=== PATIENT | female | born 1950 | race Caucasian/White ===

== ENCOUNTER → 2017-08-10 | Outpatient (CLI) | payer MEDICARE ==
--- NOTE | 2017-08-12 20:12 | BD ---
EXAMINATION TYPE: Axial Bone Density DATE OF EXAM: 08/10/2017 COMPARISON: [phone] CLINICAL HISTORY: 67 YR OLD FEMALE.....ICD-10 CODE: Z78.0 POST MENOPAUSAL W/O HRT Height: 64 Weight: 141 FRAX RISK QUESTIONS: Family History (Parent hip fracture): NO FRACTURES Secondary Osteoporosis: YES 3. Menopause before 45: YES, AT 40 YRS OLD RISK FACTORS HISTORY OF: History of Wrist Fracture: YES, LT WRIST When: AT 57 YRS OLD Family History of Osteoporosis: YES, HER MOTHER, WITH BROKEN VERTEBRAE Active: YES Diet low in dairy products/other sources of calcium: NO Postmenopausal woman: TOTAL HYST AT AGE 40 YRS OLD MEDICATIONS: Additional Medications: GENERIC ZOLOFT, VIT D, BIOTIN, STATIN FOR CHOLESTEROL, GLANTININE Additional History: DEMENTIA, ANXIETY EXAM MEASUREMENTS: Bone mineral densitometry was performed using the Meebler System. Bone mineral density as measured about the Lumbar spine is: ----- L1-L4(G/cm2): 0.968 T Score Values are as follows: ----- L1: -2.1 ----- L2: -2.1 ----- L3: -2.1 ----- L4: -0.8 ----- L1-L4: -1.8 Bone mineral density has: Decreased -6.2% since study of: 10.13.2005 Bone mineral density about the R hip (g/cm2): 0.712 Bone mineral density about the L hip (g/cm2): 0.722 T Score values are as follows: -----R Neck: -2.3 -----L Neck: -2.6 -----R Total: -2.3 -----L Total: -2.3 Bone mineral density has: Decreased -6.9% since study of: 10.13.2005 FRAX%S: THERE IS A 22.6% CHANCE OF A MAJOR OSTEOPOROTIC FX AND A 5.5% FOR HIP FX.....PROBABILITY O F FX IN 10 YRS TIME. IMPRESSION: Osteoporosis (T Score less than -2.5). There is increased fracture risk and therapy is usually indicated based on age. Re-Screen 1-2 years. NOTE: T-SCORE=SD OF THE YOUNG ADULT MEAN.
--- NOTE | 2017-08-14 10:20 | MM ---
Reason for exam: screening (asymptomatic). Last mammogram was performed 4 years and 11 months ago. Physical Findings: A clinical breast exam by your physician is recommended on an annual basis and results should be correlated with mammographic findings. MG 3D Screening Mammo W/Cad Bilateral CC and MLO view(s) were taken. Prior study comparison: September 17, 2012, bilateral digital screening mammo w/CAD. October 13, 2005, bilateral screening mammogram w/CAD. There are scattered fibroglandular densities. No significant changes when compared with prior studies. ASSESSMENT: Negative, BI-RAD 1 RECOMMENDATION: Routine screening mammogram of both breasts in 1 year.
== END | disposition home or self-care (01) ==
LOC: RADMAMWWP 14:11
PROVIDERS: ATTEND Internal Medicine
DX: Z12.31 Encounter for screening mammogram for malignant neoplasm of breast (principal); M81.0 Age-related osteoporosis without current pathological fracture; Z78.0 Asymptomatic menopausal state
CPT/HCPCS: 77063; 77067; 77080

== ENCOUNTER → 2019-02-17 | Outpatient (CLI) | payer MEDICARE ==
--- NOTE | 2019-02-17 11:05 | MR ---
EXAMINATION TYPE: MR knee RT wo con DATE OF EXAM: 02/17/2019 COMPARISON: Plain film 02/05/2019 HISTORY: Pain in right knee TECHNIQUE: Multiplanar, multisequence imaging of the right knee is performed without IV contrast. FINDINGS: MEDIAL MENISCUS: Within the posterior horn of the medial meniscus on coronal image #20 there is some linear increased signal which extends the articular surface as well as laterally, multiseptated focus is in close apposition to the posterior medial aspect of the posterior horn of the medial meniscus w hich measures approximately 1.8 x 2.2 x 2.4 cm and may represent a para meniscal cyst. LATERAL MENISCUS: Anterior and posterior horns are intact without tear. CRUCIATE LIGAMENTS: The anterior and posterior cruciate ligaments are intact and unremarkable. COLLATERAL LIGAMENTS: The medial collateral ligament and lateral collateral ligament complex are inta ct and unremarkable. EXTENSOR MECHANISM: Visualized quadriceps and patellar tendons are intact. EFFUSION: Minimal suprapatellar joint effusion POPLITEAL CYST: No popliteal/pimentel cyst. TRICOMPARTMENT SPACES: There is joint space loss in the medial compartment CARTILAGE: Suspect some grade 2 to grade III chondromalacia in the medial compartment. BONE MARROW SIGNAL: No focal abnormal marrow signal is appreciated. OTHER: No additional significant abnormality is appreciated. IMPRESSION: Findings may be indicative of a para meniscal cyst indicate an underlying meniscal tear versus possib le ganglion cyst at the posterior horn of the medial meniscus as described. Mild osteoarthritic ojeda es are suspected.
== END | disposition home or self-care (01) ==
LOC: RADMRIMAIN 08:31
PROVIDERS: ATTEND Orthopaedic Surgery
DX: M25.561 Pain in right knee (principal)

== ENCOUNTER → 2019-04-03 | Outpatient (CLI) | payer MEDICARE ==
[2019-04-03 18:54] LABS: T4, Free (Free Thyroxine) 0.9 ng/dL (0.80-1.80)
== END | disposition home or self-care (01) ==
LOC: LABWHC1 13:36
PROVIDERS: ATTEND Internal Medicine
DX: E03.9 Hypothyroidism, unspecified (principal)
CPT/HCPCS: 36415; 84439; 84443

== ENCOUNTER 2019-04-10 13:22 | Day surgery (SDC) | payer MEDICARE ==
[2019-04-07 15:00] VITALS: BMI 23.3
--- NOTE | 2019-04-09 22:56 | HP ---
HISTORY AND PHYSICAL DATE OF SURGERY: 04/10/2019 Cindi Bailey is a 69-year-old patient seen with progressive right knee pain. We discussed options for treatment. She elected to proceed with arthroscopy. Consent was obtained. PAST MEDICAL HISTORY: Hypertension, hyperlipidemia. PAST SURGICAL HISTORY: Noncontributory. MEDICATIONS: Atorvastatin, sertraline. ALLERGIES: NONE. SOCIAL HISTORY: She denies tobacco use. PHYSICAL EVALUATION OF THE RIGHT KNEE: Range of motion is 0 to 130. Tenderness, medial joint line. Positive medial Yeni's. Ligaments stable. Hip rotation without pain. Distal neurovascular exam intact. RADIOGRAPHS: Right knee radiographs revealed mild osteoarthritis. Right knee MRI revealed medial meniscal tear, a parameniscal cyst as well as osteoarthritic changes. IMPRESSION: 1. Internal derangement, right knee, with medial meniscal tear. 2. Right knee osteoarthritis. 3. Hyperlipidemia. PLAN: Right knee arthroscopy with partial meniscectomy, partial synovectomy and debridement. MMODL / IJN: [id number] /
[~2019-04-10 13:22] MED LIST: DEXAMETHASONE SOD PHOSPHATE 10 MG/ML 1 ML VIAL IV ONE; LACTATED RINGERS 1,000 ML IV SCH; MIDAZOLAM 2 MG/2 ML VIAL IV PRN; ONDANSETRON 4 MG/2 ML VIAL IVP ONE
[2019-04-10] MEDS ORDERED: LIDOCAINE 1% 20 ML VIAL (10MG/ML) FOR IV START INTRADERMA ONE (13:49)
[2019-04-10 13:57] VITALS: RESP 16
[2019-04-10] MEDS ORDERED: GLYCOPYRROLATE 0.2 MG/ML 2 ML VIAL ONE (14:42)
[2019-04-10] MEDS ORDERED: PROPOFOL 10 MG/ML 20 ML VIAL IV ONE (14:42)
[2019-04-10] MEDS ORDERED: MIDAZOLAM 2 MG/2 ML VIAL ONE (14:42)
[2019-04-10] MEDS ORDERED: LIDOCAINE 1% INJ 10MG/ML (20 ML MDV) ONE (14:42)
[2019-04-10] MEDS ORDERED: fentaNYL (PF) 50 MCG/ML 2 ML AMP ONE (14:42)
[2019-04-10] MEDS ORDERED: BUPIVACAIN-EPI 0.25%-1:200,000 30 ML VIAL SQ ONE ×2 (15:06→15:22)
--- NOTE | 2019-04-10 15:41 | P.OP ---
Date of Procedure: 04/10/19 Preoperative Diagnosis: Internal derangement right knee Postoperative Diagnosis: 1. Tear lateral meniscus right 2. Grade 2 chondromalacia medial femoral condyle right knee 3. Reactive synovitis medial, lateral and suprapatellar compartments right knee Procedure(s) Performed: 1. Arthroscopic partial lateral meniscectomy right knee 2. Arthroscopic chondroplasty medial femoral condyle right knee 3. Arthroscopic partial synovectomy medial, lateral and suprapatellar compartments right knee Anesthesia: GHADAA, local Surgeon: Zackary French Estimated Blood Loss (ml): 10 Pathology: none sent Condition: stable Disposition: PACU Indications for Procedure: 69-year-old patient seen with progressive right knee pain. After treatment options were discussed, she elected to proceed with arthroscopy. Operative Findings: see description of procedure Description of Procedure: Patient was taken to the operative suite. Patient underwent a general anesthetic by the department of anesthesia. Patient was given preoperative an tibiotics. The lower extremity was placed in a well-padded arthroscopic leg cid. The right leg was prepped and draped in the normal sterile orthopedic fashion. A lateral parapatellar and suprapatellar incision was made. Trochars were inserted. Arthroscopy was initiated. Suprapatellar pouch revealed diffuse thick reactive synovitis. The patellofemoral joint appeared to articulate congruently. There grade 1/2 chondromalacia of the patella with no osteochondral tears present.. The scope was guided into the medial gutter. No loose bodies or plica were identified. The scope was then guided into the medial compartment. A medial parapatellar incision was made. Trocar inserted followed by probe. The medial meniscus was probed and found to be stable. There was an area of grade 2 chondromalacia medial femoral condyle. There was thick reactive synovitis anteriorly. I performed a chondroplasty of the medial femoral condyle. I performed a partial synovectomy decompressing the reactive synovitis. The residual osteochondral surface was stable. There was good decompression of the synovitis. Scope and probe were then guided into the intercondylar notch. Cruciates were identified, probed and found to be stable. The scope and probe were then guided into lateral compartment. There was a complex tear involving anterior horn lateral meniscus. There was no significant chondromalacia present. There was thick reactive synovitis anteriorly. The posterior midbody horns of the meniscus was stable. I performed a partial lateral meniscectomy. I performed a partial synovectomy decompressing the reactive synovitis. The residual meniscus was stable. There was good decompression of the synovitis. The scope was in guided back into the suprapatellar compartment. I introduced a motorized shaver into the suprapatellar compartment. I debrided some piecemeal fragments of meniscus I encountered. I performed a partial synovectomy decompressing the reactive synovitis. Shaver was removed. I did introduced a Arthrex our FY and to perform some hemostasis. We had good hemostasis. I now took one more look on the entire knee, no residual debris. Instruments were now removed from the joint. The joint was infiltrated with .25% Marcaine. Steri-Strips were applied to the portal sites. Sterile dressings were applied. The patient was placed into a MEERA hose. No tourniquet was utilized. The patient was awakened, transferred to a bed and taken to recovery stable satisfactory condition.
[2019-04-10 15:44] VITALS: TEMP 97.7
[2019-04-10] MEDS: HYDROmorphone 0.5 MG/0.5 ML SYRINGE IVP PRN ×2 (15:50→16:00)
[2019-04-10 17:37] VITALS: BP 151/77; PULSE 86
== END 2019-04-10 17:57 | disposition home or self-care (01) ==
LOC: OR 13:22
PROVIDERS: ATTEND Orthopaedic Surgery
DX: S83.281A Other tear of lateral meniscus, current injury, right knee, initial encounter (principal); X58.XXXA Exposure to other specified factors, initial encounter; M94.261 Chondromalacia, right knee; M65.861 Other synovitis and tenosynovitis, right lower leg; M17.11 Unilateral primary osteoarthritis, right knee; I10 Essential (primary) hypertension; Z86.73 Personal history of transient ischemic attack (TIA), and cerebral infarction without residual deficits; Z90.710 Acquired absence of both cervix and uterus; E78.5 Hyperlipidemia, unspecified; Z79.899 Other long term (current) drug therapy
CPT/HCPCS: 29881; 29876; J2250; J1100; J2405; J0690; J2001; J3010; J2704; J1170

== ENCOUNTER → 2019-09-11 | Outpatient (CLI) | payer MEDICARE ==
--- NOTE | 2019-09-11 15:09 | ECHOS ---
STRESS ECHOCARDIOGRAM LUMASON: INDICATIONS: Difficulty in breathing MEDICATIONS: Aspirin, Sertraline, Galantamine BASELINE HEART RATE: 56 BASELINE BLOOD PRESSURE: 122/46 MAXIMUM HEART RATE: 139 MAXIMUM BLOOD PRESSURE: 197/63 85% MPHR: 130 100% MPHR: 153 METS: 7.1 MAXIMUM STAGE REACHED: II TOTAL EXERCISE TIME: 6:00 INDICATION: Difficulty in breathing. Baseline EKG shows sinus rhythm, normal axis, normal intervals. Patient exercised on Layton protocol for a total of 6 minutes achieving 7 METS, 85% of predicted maximal heart rate without chest pain or diagnostic ST-segment depression. Baseline echo shows normal left ventricular size, wall motion, systolic function. Postexercise, there is normal hyperdynamic response of all segments of myocardium noted. CONCLUSION: 1. Average exercise tolerance. 2. Negative stress test by EKG criteria. 3. Negative stress echo. NII / CHANCEN: [id number] /
== END | disposition home or self-care (01) ==
LOC: RADNMMAIN 09:53
PROVIDERS: ATTEND Internal Medicine
DX: R06.09 Other forms of dyspnea (principal); R07.89 Other chest pain; E78.5 Hyperlipidemia, unspecified
CPT/HCPCS: 93351

== ENCOUNTER → 2019-10-28 | Outpatient (CLI) | payer MEDICARE ==
--- NOTE | 2019-10-28 13:39 | BD ---
EXAMINATION TYPE: Axial Bone Density DATE OF EXAM: 10/28/2019 COMPARISON: 08/10/2017 CLINICAL HISTORY: Height: 64.2 IN Weight: 126 LBS FRAX RISK QUESTIONS: Family History (Parent hip fracture): YES MOTHER History of Fracture in Adulthood: YES LEFT WRIST AGE 53 Secondary Osteoporosis: 3. Menopause before 45: PARTIAL HYST AGE 40 RISK FACTORS HISTORY OF: History of Wrist Fracture: YES LEFT WRIST When: AGE 55 Surgery to Wrist (left): YES AGE 55 Family History of Osteoporosis: MOTHER,AUNTS 2), GRANDMOTHER(M) Active: YES Diet low in dairy products/other sources of calcium: YES Postmenopausal woman: PARTIAL HYST AGE 40 Frequent falls: BALANCE ISSUES MEDICATIONS: Osteoporosis Medications: NOT NOW Which medication: Fosamax How Lon YEARS Additional Medications: GALANTAMINE,LIPITOR, ZOLOFT, LOW DOSE ASPIRIN EXAM MEASUREMENTS: Bone mineral densitometry was performed using the MAINtag System. Bone mineral density as measured about the Lumbar spine is: ----- L1-L4(G/cm2): 0.894 T Score Values are as follows: ----- L2: -2.7 ----- L3: -2.6 ----- L4: -2.0 ----- L1-L4: -2.4 Bone mineral density has: Decreased -8.5% since study of: 08/10/2017 Bone mineral density about the R hip (g/cm2): 0.670 Bone mineral density about the L hip (g/cm2): 0.643 T Score values are as follows: -----R Neck: -2.6 -----L Neck: -2.8 -----R Total: -2.7 -----L Total: -2.6 Bone mineral density has: Decreased -5.7% since study of: 08/10/2017 IMPRESSION: Osteoporosis NOTE: T-SCORE=SD OF THE YOUNG ADULT MEAN.
--- NOTE | 2019-11-03 12:08 | MM ---
Reason for exam: screening (asymptomatic). Last mammogram was performed 2 years and 3 months ago. Physical Findings: A clinical breast exam by your physician is recommended on an annual basis and results should be correlated with mammographic findings. MG 3D Screening Mammo W/Cad Bilateral CC and MLO view(s) were taken. Prior study comparison: August 10, 2017, bilateral MG 3d screening mammo w/cad. September 17, 2012, bilateral digital screening mammo w/CAD. There are scattered fibroglandular densities. There is no discrete abnormality. ASSESSMENT: Negative, BI-RAD 1 RECOMMENDATION: Routine screening mammogram of both breasts in 1 year.
== END | disposition home or self-care (01) ==
LOC: RADMAMWWP 08:38
PROVIDERS: ATTEND Internal Medicine
DX: Z12.31 Encounter for screening mammogram for malignant neoplasm of breast (principal); M81.0 Age-related osteoporosis without current pathological fracture
CPT/HCPCS: 77063; 77067; 77080

== ENCOUNTER → 2020-03-03 | Outpatient (CLI) | payer MEDICARE | END | disposition home or self-care (01) | LOC: CPPFTMAIN 10:18 | PROVIDERS: ATTEND Internal Medicine | DX: R94.2 Abnormal results of pulmonary function studies (principal); R05 Cough | CPT/HCPCS: 94060; 94726; 94729 ==

== ENCOUNTER → 2020-12-09 | Outpatient (CLI) | payer MEDICARE ==
--- NOTE | 2020-12-10 12:29 | MM ---
Reason for exam: screening (asymptomatic). Last mammogram was performed 1 year and 1 month ago. History: Took hormonal contraceptives for 5 years. Physical Findings: A clinical breast exam by your physician is recommended on an annual basis and results should be correlated with mammographic findings. MG 3D Screening Mammo W/Cad Bilateral CC and MLO view(s) were taken. Prior study comparison: October 28, 2019, bilateral MG 3d screening mammo w/cad. August 10, 2017, bilateral MG 3d screening mammo w/cad. There are scattered fibroglandular densities. Finding: There are intermediate concern, suspicious coarse heterogeneous, grouped/clustered calcifications in the 11-12 o'clock middle position of the right breast. New finding since October 28, 2019 and August 10, 2017. ASSESSMENT: Incomplete: need additional imaging evaluation, BI-RAD 0 RECOMMENDATION: Special view mammogram of the right breast. [facility] will attempt to contact patient to return for supplemental views.
== END | disposition home or self-care (01) ==
LOC: RADMAMWWP 13:26
PROVIDERS: ATTEND Internal Medicine
DX: Z12.31 Encounter for screening mammogram for malignant neoplasm of breast (principal)
CPT/HCPCS: 77063; 77067

== ENCOUNTER → 2020-12-24 | Outpatient (CLI) | payer MEDICARE ==
--- NOTE | 2020-12-27 12:28 | MM ---
Reason for exam: additional evaluation requested from abnormal screening. Last mammogram was performed less than 1 month ago. History: Took hormonal contraceptives for 5 years. Physical Findings: Nurse did not find any significant physical abnormalities on exam. MG 3D Work Up W/Cad RT CC with magnification, LM with magnification, and LM view(s) were taken of the right breast. Prior study comparison: December 09, 2020, bilateral MG 3d screening mammo w/cad. There are scattered fibroglandular densities. Finding: There are intermediate concern, suspicious grouped/clustered, fine calcifications in the 11 o'clock middle position of the right breast. These results were verbally communicated with the patient and result sheet given to the patient on 12/24/20. ASSESSMENT: Suspicious, BI-RAD 4 RECOMMENDATION: Stereotactic core biopsy of the right breast. Called Dr. Montiel's office with mammographic findings and has scheduled an appointment for the patient for 12/24/20 at 3:[address] Hernandez. Biopsy scheduled for 02/04/21 at 8:00. PRELIMINARY REPORT CALLED AND FAXED TO DR. HERNANDEZ ON 12/27/20.
== END | disposition home or self-care (01) ==
LOC: RADMAMWWP 13:29
PROVIDERS: ATTEND Internal Medicine
DX: N64.89 Other specified disorders of breast (principal); R92.1 Mammographic calcification found on diagnostic imaging of breast
CPT/HCPCS: 77065; G0279; 77061

== ENCOUNTER → 2020-12-24 | Outpatient (CLI) | payer MEDICARE ==
[2020-12-24 15:32] VITALS: BP 109/71; PULSE 60; RESP 12; TEMP 98.6
--- NOTE | 2020-12-24 15:57 | P.GSHP ---
History of Present Illness H&P Date: 12/24/20 Chief Complaint: Abnormal right breast mammogram Cindi is a 70-year-old white female who underwent a routine screening mammogram was noted to have an area of microcalcifications in the right breast. This was reviewed with Dr. Short and it was felt that stereotactic core biopsy should be performed. The location is in the upper outer quadrant of the right breast. She does not feel any lumps masses or nodules of concern in either breast. She is not complaining of any nipple discharge or skin changes. She has never had any surgery on her breast in the past. Caffeine: tea 4 cups/day nicotine: none chocolate: rare hormones: none BCP: about two years 45 years ago Family History: no history of cancer Hormonal History: menarche: 13 , breast fed: yes, age at first : 27 menopause: hysterectomy about 37 took one ovary, done for fibroid tumor no canc er Surgical History: Hysterectomy 1 ovary removed 2 C-sections Plate in left arm from trauma Medical history: alzheimers/dementia mini strokes on galantamine Social history: Nicotine: Negative Alcohol: Negative Drugs:none - Review of Systems Comment: ? 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 - Constitutional Constitutional: Denies chills, Denies fever - EENT Eyes: denies blurred vision, denies pain Ears: bilateral: tinnitus, deny: decreased hearing Ears, nose, mouth and throat: Denies headache, Denies sore throat - Breasts Breasts: bilateral: as per HPI - Cardiovascular Cardiovascular: Denies chest pain, Denies shortness of breath - Respiratory Respiratory: Denies cough, Denies 7 - Gastrointestinal Gastrointestinal: Denies abdominal pain, Denies diarrhea, Denies nausea, Denies vomiting - Genitourinary (Female) Genitourinary: Denies dysuria, Denies hematuria - Menstruation Menstruation: Reports post hysterectomy - Musculoskeletal Musculoskeletal: Denies myalgias - Integumentary Integumentary: Denies pruritus, Denies rash - Neurological Comment: ? mini strokes, dementia Neurological: Denies numbness, Denies weakness - Psychiatric Psychiatric: Reports depression - Endocrine Endocrine: Reports weight change - Hematologic/Lymphatic Comment: baby aspirin - Allergic/Immunologic Allergic/Immunologic: Reports seasonal allergies Past Medical History History of Any Multi-Drug Resistant Organisms: None Reported Smoking Status: Never smoker Medications and Allergies Home Medications Medication Instructions Recorded Confirmed Type Aspirin [Adult Low Dose Aspirin EC] 81 mg PO DAILY 04/07/19 12/24/20 History Sertraline HCl [Zoloft] 100 mg PO DAILY 04/07/19 12/24/20 History Atorvastatin [Lipitor] 40 mg PO DAILY 12/24/20 12/24/20 History Galantamine [Razadyne] 1 mg PO DAILY 12/24/20 12/24/20 History Allergies Allergy/AdvReac Type Severity Reaction Status Date / Time No Known Allergies Allergy Verified 04/10/19 13:43 Surgical - Exam Vital Signs Temp Pulse Resp BP Pulse Ox 98.6 F 60 12 109/71 98 12/24/20 15:27 12/24/20 15:27 12/24/20 15:27 12/24/20 15:27 12/24/20 15:27 BMI 18.6 - General no distress - Eyes normal ocular movement - ENT no hearing loss - Neck no masses, trachea midline - Respiratory normal respiratory effort, clear to auscultation - Cardiovascular Heart Sounds: normal: S1, S2 - Abdomen Abdomen: soft, non tender, no guarding, no rigid, no rebound - Integumentary normal turgor - Neurologic no disoriented, no combative - Musculoskeletal normal gait, normal posture - Psychiatric oriented to time, oriented to person, oriented to place, speech is normal, memory intact Breast Exam: BRA: 36C inspection: grade 2/3 ptosis bilateral Palpation: Right breast: Multi-positional exam fibrocystic changes no dominant masses or nodules of concern Right axilla: No adenopathy of concern Left breast: Multiple positional exam fibrocystic changes no dominant masses or nodules of concern Left axilla: No adenopathy of concern Results Bilateral mammogram reviewed personally with Dr. Short Assessment and Plan Assessment: Impression: alzheimers/dementia mini strokes on galantamine Right breast mammographic abnormality/microcalcifications upper outer quadrant Plan: X-rays reviewed with Dr. Short recommendations stereotactic core biopsy for from a CC from above approach Risks and benefits of stereotactic core biopsy discussed with the patient. Risks include but are not limited to bleeding, infection, reaction to the anesthetic. She understands that as long as we can see this on the supervisor shuttle preparation film we should be able to do the stereo biopsy. If not further recommendation made for open biopsy. At this time watchful waiting or open biopsy discussed but not recommended. The patient understands and wishes to proceed. CC: Dr. Montiel
== END ==
LOC: WWCWWP 15:02
PROVIDERS: ATTEND Surgery
DX: R92.0 Mammographic microcalcification found on diagnostic imaging of breast (principal); F02.80 Dementia in other diseases classified elsewhere, unspecified severity, without behavioral disturbance, psychotic disturbance, mood disturbance, and anxiety; G30.9 Alzheimer's disease, unspecified; I63.9 Cerebral infarction, unspecified; Z79.82 Long term (current) use of aspirin; Z90.721 Acquired absence of ovaries, unilateral; Z79.899 Other long term (current) drug therapy

== ENCOUNTER → 2021-02-04 | Day surgery (SDC) | payer MEDICARE ==
[2021-02-04 07:20] VITALS: RESP 16
--- NOTE | 2021-02-04 08:41 | P.PCN ---
Date of Procedure: 02/04/21 Preoperative Diagnosis: Microcalcifications of concern right breast Postoperative Diagnosis: Same Procedure(s) Performed: Stereotactic core biopsy right breast Anesthesia: local Surgeon: China Hernandez Pathology: other (breast tissue) Condition: stable Disposition: same day Indications for Procedure: Microcalcifications of concern right breast Operative Findings: X-ray of specimen reveals microcalcifications Description of Procedure: Cindi is a 71-year-old white female who on a routine mammogram was noted to have indeterminate suspicious group clustered fine calcifications in the 11:00 middle position of the right breast. She was recommended to undergo a stereotactic core biopsy. Risk and benefits of the procedure were discussed with the patient. Risks include but are not limited to bleeding, infection, reaction to the anesthetic. The possibility of being unable to see the calcifications of concern on his cell phone were discussed in which case the procedure would be unable to be performed. Alternatives such as watchful wa iting and biopsy were noted but not recommended. The patient was taken to the stereotactic core biopsy proven. She was positioned prone on the lower rad table. A CC from above approach was utilized. A scalp film was obtained. The calcifications of concern were identified. These were targeted. The breast was prepped using Betadine. 20 mL of 1% lidocaine was used to anesthetize the area of concern. A 9-gauge vacuum- assisted core rotating biopsy needle was driven to the correct coordinates. A prefire film was obtained. The needle was fired. Post-fire film was obtained and noted to be in the correct location. 13 specimens were obtained. Radiograph of the specimen revealed the calcifications of concern had been sampled. A secure marked top hat Clip was placed. This was noted to be in the correct location. The patient tolerated the procedure in stable condition. The specimen was sent to pathology. The patient will follow-up with Dr. Persaud next week.
[2021-02-04 08:54] VITALS: BP 144/66; PULSE 53; TEMP 98
--- NOTE | 2021-02-04 12:02 | MM ---
Cindi is a 71-year-old white female who on a routine mammogram was noted to have indeterminate suspicious group clustered fine calcifications in the 11:00 middle position of the right breast. She was recommended to undergo a stereotactic core biopsy. Risk and benefits of the procedure were discussed with the patient. Risks include but are not limited to bleeding, infection, reaction to the anesthetic. The possibility of being unable to see the calcifications of concern on his cell phone were discussed in which case the procedure would be unable to be performed. Alternatives such as watchful waiting and biopsy were noted but not recommended. The patient was taken to the stereotactic core biopsy proven. She was positioned prone on the lower rad table. A CC from above approach was utilized. A top waddy film was obtained. The calcifications of concern were identified. These were targeted. The breast was prepped using Betadine. 20 mL of 1% lidocaine was used to anesthetize the area of concern. A 9-gauge vacuum- assisted core rotating biopsy needle was driven to the correct coordinates. A prefire film was obtained. The needle was fired. Post-fire film was obtained and noted to be in the correct location. 13 specimens were obtained. Radiograph of the specimen revealed the calcifications of concern had been sampled. A secure marked top hat Clip was placed. This was noted to be in the correct location. The patient tolerated the procedure in stable condition. The specimen was sent to pathology. The patient will follow-up with Dr. Persaud next week. RAGINI
== END ==
LOC: RADMAMWWP 07:10
PROVIDERS: ATTEND Surgery
DX: R92.0 Mammographic microcalcification found on diagnostic imaging of breast (principal)
CPT/HCPCS: 19081; 88305; A4648; J2001

== ENCOUNTER → 2021-02-10 | Outpatient (CLI) | payer MEDICARE ==
[2021-02-10 09:35] VITALS: BP 158/71; PULSE 57; RESP 18; TEMP 98
--- NOTE | 2021-02-10 09:57 | P.PN ---
Subjective Progress Note Date: 02/10/21 Principal diagnosis: Fibrocystic breast changes Seven 71-year-old white female status post right breast stereotactic core biopsy on [id number]. Pathology revealed fibroadenomatoid hyperplasia with calcifications and the background of fibrocystic changes. This was felt to be concordant. The patient has no complaints related to the procedure. Objective - Vital Signs Vital signs: Vital Signs Temp 98.0 F 02/10/21 09:33 Pulse 57 L 02/10/21 09:33 Resp 18 02/10/21 09:33 BP 158/71 02/10/21 09:33 Pulse Ox 100 02/10/21 09:33 Intake & Output 02/09/21 02/10/21 02/10/21 18:59 06:59 18:59 Weight 49.895 kg - Constitutional General appearance: Present: cooperative - EENT Eyes: Present: EOMI ENT: Present: hearing grossly normal - Neck Neck: Present: normal ROM - Respiratory Respiratory: bilateral: CTA - Cardiovascular Rhythm: regular Heart sounds: normal: S1, S2 - Integumentary Integumentary: Present: normal turgor - Musculoskeletal Musculoskeletal: Present: gait normal - Psychiatric Psychiatric: Present: A&O x's 3, appropriate affect, intact judgment & insight - Additional findings Additional findings: Breast: Biopsy area clean and dry no evidence of infection Assessment and Plan Assessment: Impression: Patient status post her tactic core biopsy right breast/pathology benign concordant Plan: Repeat right breast mammogram in 6 months with physician exam at that time Cc: Dr. Montiel
== END ==
LOC: WWCWWP 09:23
PROVIDERS: ATTEND Surgery
DX: N60.11 Diffuse cystic mastopathy of right breast (principal)

== ENCOUNTER → 2021-08-08 | Outpatient (CLI) | payer MEDICARE ==
--- NOTE | 2021-08-09 10:54 | MM ---
Reason for Exam: Follow-up at short interval from prior study. Last screening mammogram was performed 8 month(s) ago. Patient History: Menarche at age 13. First Full-Term at age 27. Right ovary removed at age 37. Hysterectomy at age 37. Patient used Hormonal Contraceptives for 5 years. 02/04/2021, Benign Core Biopsy on the right side. Risk Values: Ashley 5 year model risk: 2.5%. NCI Lifetime model risk: 7.6%. Film Views: Right CC views were taken. Right MLO views were taken. Prior Study Comparison: 10/28/2019 Bilateral Screening Mammogram, [facility]. 12/09/2020 Bilateral Screening Mammogram, [facility]. 12/24/2020 Right Diagnostic Mammogram, [facility]. Tissue Density: Right: There are scattered fibroglandular densities. Findings: Analyzed By CAD. Previous mammotome biopsy in the right breast. No new discrete abnormality. Overall Assessment: Benign, BI-RAD 2 Management: Screening Mammogram of both breasts in 4 months. Back on schedule.
== END | disposition home or self-care (01) ==
LOC: RADMAMWWP 12:54
PROVIDERS: ATTEND Surgery
DX: R92.8 Other abnormal and inconclusive findings on diagnostic imaging of breast (principal); Z90.721 Acquired absence of ovaries, unilateral
CPT/HCPCS: 77065; G0279; 77061

== ENCOUNTER → 2021-12-07 | Outpatient (CLI) | payer MEDICARE ==
--- NOTE | 2021-12-08 10:10 | CA ---
Transthoracic Echo Report Name: Cindi Bailey Age: 71 Gender: F : 1950 Exam Date: 12/07/2021 11:13 Exam Location: [facility] Ht (in): 65 Wt (lb): 112 Ordering Physician: Mika Montiel MD Attending/Referring Phys: Drawbench Operator Helper Shannon Suazo RDCS Procedure CPT: Indications: R01.1 cardiac murmur Cardiac Hx: Technical Quality: Fair Contrast 1: Total Dose (mL): Contrast 2: Total Dose (mL): MEASUREMENTS (Male / Female) Normal Values 2D ECHO LV Diastolic Diameter PLAX 2.6 cm 4.2 - 5.9 / 3.9 - 5.3 cm LV Systolic Diameter PLAX 1.9 cm IVS Diastolic Thickness 0.9 cm 0.6 - 1.0 / 0.6 - 0.9 cm LVPW Diastolic Thickness 1.1 cm 0.6 - 1.0 / 0.6 - 0.9 cm LV Relative Wall Thickness 0.8 RV Internal Dim ED PLAX 2.2 cm LA Volume 27.3 cm??? 18 - 58 / 22 - 52 cm??? M-MODE Aortic Root Diameter MM 2.2 cm LA Systolic Diameter MM 3.2 cm LA Ao Ratio MM 1.4 AV Cusp Separation MM 1.5 cm DOPPLER AV Peak Velocity 105.4 cm/s AV Peak Gradient 4.4 mmHg AI Peak Velocity 520.0 cm/s AI Peak Gradient 108.2 mmHg AI Pressure Half Time 497.3 ms LVOT Peak Velocity 72.2 cm/s LVOT Peak Gradient 2.1 mmHg MV Area PHT 3.2 cm??? Mitral E Point Velocity 63.2 cm/s Mitral A Point Velocity 76.7 cm/s Mitral E to A Ratio 0.8 MV Deceleration Time 238.5 ms MV E' Velocity 6.2 cm/s Mitral E to MV E' Ratio 10.2 TR Peak Velocity 189.3 cm/s TR Peak Gradient 14.3 mmHg Right Ventricular Systolic Press 18.9 mmHg FINDINGS Left Ventricle Mildly increased left ventricular wall thickness. Normal Left ventricular size, systolic function with no obvious regional wall motion abnormalities. Normal Left ventricular diastolic filling pattern. Left ventricular ejection fraction is estimated at 55 %. Right Ventricle Normal right ventricular size and function. Right ventricular systolic pressure within normal limits. Right Atrium Normal right atrial size. Left Atrium Normal left atrial size. No evidence for an atrial septal defect. Mitral Valve Structurally normal mitral valve. Mild mitral annular calcification. Mild mitral regurgitation. Aortic Valve Trileaflet aortic valve. No aortic stenosis. Mild aortic regurgitation. Tricuspid Valve Structurally normal tricuspid valve. Mild tricuspid regurgitation. Pulmonic Valve Trace pulmonic regurgitation. Pericardium No pericardial effusion. Aorta Normal size aortic root and proximal ascending aorta. CONCLUSIONS LVH with preserved systolic function Previewed by: Dr. Jesús Salinas MD (Electronically Signed) Final Date: 08 December 2021 10:09
== END | disposition home or self-care (01) ==
LOC: RADECHMAIN 11:06
PROVIDERS: ATTEND Internal Medicine
DX: I08.1 Rheumatic disorders of both mitral and tricuspid valves (principal)
CPT/HCPCS: 93306

== ENCOUNTER → 2022-02-08 | Outpatient (CLI) | payer MEDICARE ==
--- NOTE | 2022-02-09 18:26 | MM ---
Reason for Exam: Screening (asymptomatic). Last mammogram was performed 1 year(s) and 2 month(s) ago. Patient History: Menarche at age 13. First Full-Term at age 27. Right ovary removed at age 37. Hysterectomy at age 37. Patient used Hormonal Contraceptives for 5 years. 02/04/2021, Benign Core Biopsy on the right side. Risk Values: Ashley 5 year model risk: 2.5%. NCI Lifetime model risk: 7.2%. Prior Study Comparison: 12/09/2020 Bilateral Screening Mammogram, [facility]. 12/24/2020 Right Diagnostic Mammogram, [facility]. 08/08/2021 Right MG 3D diag mammo w/cad RT, [facility]. Tissue Density: There are scattered fibroglandular densities. Findings: Analyzed By CAD. Microclip right breast from prior biopsy. No significant change from prior exams. Overall Assessment: Benign, BI-RAD 2 Management: Screening Mammogram of both breasts in 1 year. 1. Patient should continue monthly self breast exams. 2. A clinical breast exam by your physician is recommended on an annual basis. 3. This exam should not preclude additional follow-up of suspicious palpable abnormalities. Electronically signed and approved by: Cely Baxter M.D. Radiologist
== END | disposition home or self-care (01) ==
LOC: RADMAMWWP 08:21
PROVIDERS: ATTEND Surgery
DX: Z12.31 Encounter for screening mammogram for malignant neoplasm of breast (principal); Z98.890 Other specified postprocedural states
CPT/HCPCS: 77063; 77067

== ENCOUNTER → 2022-02-09 | Outpatient (CLI) | payer MEDICARE ==
[2022-02-09 18:12] LABS: Basophils # (A) 0.08 X 10*3/uL (0.00-0.10); Basophils % (A) 1.2 %; Eosinophils # (A) 0.21 X 10*3/uL (0.04-0.35); Eosinophils % (A) 3.3 %; HCT 39.6 % (37.2-46.3); HGB 12.6 g/dL (12.0-15.0); Immature Grans, Automated 0.2 %; Lymphocytes # (A) 2.37 X 10*3/uL (0.90-5.00); Lymphocytes % (A) 36.9 %; MCH 31.4 pg (27.0-32.0); MCHC 31.8 g/dL (32.0-37.0); MCV 98.8 fL (80.0-97.0); Mean Platelet Volume 9.5 fL (9.5-12.2); Monocytes # (A) 0.56 X 10*3/uL (0.20-1.00); Monocytes % (A) 8.7 %; NRBC Per 100 WBC 0 /100 WBCS (0.0-0.0); Neutrophils # (A) 3.19 X 10*3/uL (1.80-7.70); Neutrophils % (A) 49.7 %; Platelet Count 340 X 10*3/uL (140-440); RBC 4.01 X 10*6/uL (4.10-5.20); RDW 11.6 % (11.5-14.5); WBC 6.42 X 10*3/uL (4.50-10.00)
[2022-02-09 18:18] LABS: Anion Gap 13.2 mmol/L (10.00-18.00); Carbon Dioxide 25.6 mmol/L (20.0-27.5); Potassium 5.7 mmol/L (3.5-5.5)
== END | disposition home or self-care (01) ==
LOC: LABPAT 13:30
PROVIDERS: ATTEND Orthopaedic Surgery Hand Surgery
DX: Z01.812 Encounter for preprocedural laboratory examination (principal); Z01.818 Encounter for other preprocedural examination; R22.32 Localized swelling, mass and lump, left upper limb
CPT/HCPCS: 36415; 80051; 85025; 93005

== ENCOUNTER 2022-02-22 06:08 | Day surgery (SDC) | payer MEDICARE ==
--- NOTE | 2022-02-21 13:29 | P.HPOR ---
History of Present Illness H&P Date: 02/21/22 Chief Complaint: Left index finger soft tissue mass Subjective: This is a 71 year old female that presents today for initial evaluation regarding a several year history of a left index finger soft tissue mass. She denies any trauma or inciting event but states it has become more of an annoyance when she puts pressure on it. She denies any paresthesias or weakness. She has a history of a left distal radius ORIF with Dr. Devlin in 2004. Physical Examination: LUE: AIN/PIN/Radial/Ulnar/Median motor intact. Radial/Ulnar/Median SILT. 2+/4 Radial/Ulnar pulses palpated. 5/5 APB, 5/5 FDI. Negative Finkelsteins, negative CMC grind, negative Durkan's compression. EPL/FPL intact. Prominent screw palpable underneath dorsal skin at level of wrist. 1x1cm round mobile mass at level of DIP joint on volar aspect of the index finger. Imaging: X-Rays of the left hand demonstrate no acute osseous abnormality. Evidence of volar plating of distal radius. Prominent dorsal screw and distal placement of t he plate is noted. Impression: 1.) Left index finger soft tissue mass. Plan: Diagnosis and treatment options were discussed with the patient. We discussed possible soft tissue mass excision and she wishes to proceed with surgery involving left index finger soft tissue mass excision. Risks and benefits of surgery including bleeding, infection, damage to surrounding tissue, need for further surgery, residual numbness were discussed and the patient wished to go forward with surgery. We discussed the prominent screw dorsally that is palpable but there appears to be no tendon irritation from it but we discussed that she should seek treatment if she has any signs of tendon irritation in the thumb or other fingers. The patient was agreeable with this plan. -Vern Alicea DO Orthopedic Hand/Upper Extremity Surgeon Past Medical History Past Medical History: CVA/TIA, Hyperlipidemia, Memory Impairment Additional Past Medical History / Comment(s): 2 TIA's in past per MRI-has memory issues, early dementia per pt., possibly heart murmur, but hasn't had to have any tx. for History of Any Multi-Drug Resistant Organisms: None Reported Past Surgical History: Section, Hysterectomy, Orthopedic Surgery Additional Past Surgical History / Comment(s): C/S x2, ORIF left wrist, arthroscopy right knee Past Anesthesia/Blood Transfusion Reactions: No Reported Reaction Smoking Status: Never smoker Medications and Allergies Home Medications Medication Instructions Recorded Confirmed Type Aspirin [Adult Low Dose Aspirin EC] 81 mg PO DAILY 04/07/19 02/14/22 History Sertraline HCl [Zoloft] 100 mg PO DAILY 04/07/19 02/14/22 History Atorvastatin [Lipitor] 10 mg PO DAILY 12/24/20 02/14/22 History Galantamine [Razadyne] 12 mg PO BID 12/24/20 02/14/22 History Allergies Allergy/AdvReac Type Severity Reaction Status Date / Time No Known Allergies Allergy Verified 02/15/22 15:21 Physical Examination Osteopathic Statement: *. No significant issues noted on an osteopathic structural exam other than those noted in the History and Physical/Consult.
[2022-02-22] MEDS ORDERED: LIDOCAINE 1% (10MG/ML) FOR IV START INTRADERMA PRN (06:27)
[2022-02-22] MEDS ORDERED: LACTATED RINGERS 1,000 ML IV SCH (06:27)
[2022-02-22] MEDS ORDERED: DEXAMETHASONE SOD PHOSPHATE 4 MG/ML 1 ML VIAL IV ONE (06:27)
[2022-02-22] MEDS ORDERED: LIDOCAINE 1% (10MG/ML) FOR IV START IV ONE (06:45)
[2022-02-22 07:00] VITALS: TEMP 98
[2022-02-22] MEDS ORDERED: HYDROmorphone 0.5 MG/0.5 ML SYRINGE IVP PRN (07:00)
[2022-02-22] MEDS ORDERED: ONDANSETRON 4 MG/2 ML VIAL ONE (07:13)
[2022-02-22] MEDS ORDERED: fentaNYL (PF) 50 MCG/ML 2 ML AMP ONE (07:23)
[2022-02-22] MEDS ORDERED: PROPOFOL 10 MG/ML 20 ML VIAL IV ONE (07:23)
[2022-02-22] MEDS ORDERED: MIDAZOLAM 2 MG/2 ML VIAL ONE (07:23)
[2022-02-22] MEDS ORDERED: LIDOCAINE 1% INJ 10MG/ML (20 ML MDV) SQ ONE (07:32)
[2022-02-22] MEDS ORDERED: BUPIVACAINE (PF) 0.5% 30 ML VIAL SQ ONE (07:32)
[2022-02-22 07:57] VITALS: BP 102/62; PULSE 52; RESP 12
--- NOTE | 2022-02-22 09:30 | P.OP ---
Date of Procedure: 02/22/22 Preoperative Diagnosis: 1.) Left index finger volar soft tissue mass Postoperative Diagnosis: 1.) Left index finger volar soft tissue mass Procedure(s) Performed: 1.) Left index finger volar soft tissue mass excision. Anesthesia: MAC Surgeon: Vern Alicea Estimated Blood Loss (ml): 0 Pathology: other (Left index finger soft tissue mass) Condition: stable Disposition: PACU Description of Procedure: This is a 72 year old female who presents today for surgical intervention for a left index soft tissue mass. Risks and benefits of surgery were discussed with the patient including bleeding, damage to surrounding tissue, infection, need for further surgery as well as risks of anesthesia including pulmonary embolism and even and the patient wished to proceed with surgical intervention. The patient was seen in the pre-operative area by myself. Consent and H&P were completed and updated. The correct extremity was marked in the pre-operative area by myself and all other questions were answered. Operative Narrative: The patient was brought to the operating room by the department of anesthesia. They remained on the portable stretcher and a rolling hand table was brought to the side of the operative extremity. Pre-operative time out was pe rformed indicating the correct patient, procedure and laterality. All in the room agreed. Pre-operative antibiotics were given prior to skin incision. The patient was then drifted off to sleep by the department of anesthesia. Digital block was performed with 7cc's of 0.5% Lidocaine and 1% lidocaine in a 50:50 mixture. A nonsterile tourniquet was then applied to the operative extremity and the left upper extremity was then prepped and draped in normal sterile fashion. The operative extremity was the exsanguinated with an esmarch bandage and the tourniquet was inflated to 250mmHg. Oblique incision was made along the distal aspect of the middle phalanx in a Amaris type fashion. Blunt dissection was taken down through subcutaneous tissues taking care to protect branches of the digital nerve. Upon further dissection a purplish/red colored multilobulated mass was identified sitting superficial to the flexor tendon sheath. This was excised in it's entirety and collected and sent to lab for pathology. The wound was then closed with 4-0 nylon suture. Tourniquet was let down and the finger had immediate perfusion. Soft dressing was applied with adaptic, 4x4, kerlix and loosely applied coban. The patient was then woken by the department of anesthesia and transferred to PACU in stable condition. Vern Alicea D.O. Orthopedic Hand/Upper Extremity Surgeon
== END 2022-02-22 08:25 | disposition home or self-care (01) ==
LOC: OR 06:08
PROVIDERS: ATTEND Orthopaedic Surgery Hand Surgery
DX: D18.09 Hemangioma of other sites (principal); E78.5 Hyperlipidemia, unspecified; R41.3 Other amnesia; Z98.891 History of uterine scar from previous surgery; Z86.73 Personal history of transient ischemic attack (TIA), and cerebral infarction without residual deficits; Z90.710 Acquired absence of both cervix and uterus; Z98.890 Other specified postprocedural states; Z79.82 Long term (current) use of aspirin; Z79.899 Other long term (current) drug therapy
CPT/HCPCS: 26115; 88305; 84132; J2250; J1100; J2405; J0690; J2001; J3010; J2704

== ENCOUNTER → 2023-04-13 | Outpatient (CLI) | payer MEDICARE ==
--- NOTE | 2023-04-16 20:43 | MM ---
Reason for Exam: Screening (asymptomatic). Last mammogram was performed 1 year(s) and 2 month(s) ago. Patient History: Menarche at age 13. First Full-Term at age 27. Right ovary removed at age 37. Hysterectomy at age 37. Patient used Hormonal Contraceptives for 5 years. 02/04/2021, Benign Core Biopsy on the right side. Risk Values: Ashley 5 year model risk: 2.5%. NCI Lifetime model risk: 6.9%. Prior Study Comparison: 12/24/2020 Right Diagnostic Mammogram, [facility]. 08/08/2021 Right MG 3D diag mammo w/cad RT, [facility]. 02/08/2022 Bilateral MG 3D screening mammo w/cad, [facility]. Tissue Density: There are scattered fibroglandular densities. Findings: Analyzed By CAD. Microclip right breast from prior biopsy. There is no suspicious group of microcalcifications or new suspicious mass in either breast. Overall Assessment: Benign, BI-RAD 2 Management: Screening Mammogram of both breasts in 1 year. . Patient should continue monthly self-breast exams. A clinical breast exam by your physician is recommended on an annual basis. This exam should not preclude additional follow-up of suspicious palpable abnormalities. Note on Ashley scores and lifetime risk: 1. A Ashley score greater than 3% is considered moderate risk. If this is the case, consider specialist referral to assess eligibility for a risk reducing agent. 2. If overall lifetime risk for the development of breast cancer is 20% or higher, the patient may qualify for future screening with alternating mammogram and breast MRI. Electronically signed and approved by: Cely Baxter M.D. Radiologist
== END | disposition home or self-care (01) ==
LOC: RADMAMWWP 10:48
PROVIDERS: ATTEND Family Medicine
DX: Z12.31 Encounter for screening mammogram for malignant neoplasm of breast (principal)
CPT/HCPCS: 77063; 77067

== ENCOUNTER → 2024-09-24 | Outpatient (CLI) | payer MEDICARE ==
[~2024-09-24] MED LIST changes: -DEXAMETHASONE SOD PHOSPHATE 10 MG/ML 1 ML VIAL IV ONE; -LACTATED RINGERS 1,000 ML IV SCH; -MIDAZOLAM 2 MG/2 ML VIAL IV PRN; -ONDANSETRON 4 MG/2 ML VIAL IVP ONE; +REGADENOSON 0.4 MG/5 ML SYRINGE IV PRN
--- NOTE | 2024-09-24 09:42 | CA ---
Lexiscan Nuclear Stress Test Report Name: Cindi Bailey Exam Date: 09/24/2024 09:12 Exam Location: [place] [facility] Ht (in): 65 Wt (lb): 120 BSA: 1.59 Ordering Phys: Gorge Head MD Referring Phys: Gorge Head MD Technologist: Nas Romero Age: 74 Gender: F : 1950 Procedure CPT: Indications: I20.89 ANGINA ICD-10 Codes: Patient History: Medications: atorvastatin, venlafaxine, aspirin Meds past 24 hrs: Pretest Chest Pain: STRESS TEST Lexiscan Protocol Exercise Duration (min:sec): 02:[address] Depressions (mm): Angina Score: Adrian Score: Resting HR (bpm): 57 Peak HR (bpm): 88 Resting BP (mmHg): 141 / 73 Peak BP (mmHg): 141 / 65 MPHR: 148 Target HR: 126 % MPHR: 59 METS: 1.0 Total Dose: Peak Dose: Atropine: Double Product: 89341 BP Response: Stress Termination: INFUSION COMPLETE Stress Symptoms: NO SYMPTOMS Stress Summary: ECG ANALYSIS Resting ECG: Normal sinus rhythm with nonspecific ST-T wave changes Stress ECG: Was given intravenous Lexiscan as per protocol did not have chest pain EKG changes were nondiagnostic CONCLUSIONS Inconclusive EKG portion of the stress test secondary to baseline EKG abnormalities Cardiolite portion of the stress test will be reported separately Dr. Yann Savage MD (Electronically Signed) Final Date: 24 September 2024 09:41
--- NOTE | 2024-09-24 12:54 | NM ---
EXAMINATION TYPE: NM stress lexiscan cardiolite DATE OF EXAM: 09/24/2024 COMPARISON: NONE CLINICAL INDICATION: Female, 74 years old with history of I20.89 angina; TECHNIQUE: After the intravenous administration of 10.16 mCi Tc 99m Sestamibi - Cardiolite resting S PECT images acquired 45 minutes post injection. The patient received 0.4mg Lexiscan, 26.4 mCi Tc 99m Sestamibi - Stress images obtained [address] injection FINDINGS: Review of stress and rest SPECT images demonstrates possible slight reversibility along the basal sep kalli and basal lateral lo though not corroborated on Polar maps. No other distinct perfusion abnorm ality. Gated analysis shows normal wall motion with an estimated left ventricular ejection fraction of 75 %. TID is abnormally increased at 1.35. IMPRESSION: 1. Increased 'transient ischemic dilatation' ratio may be seen in the setting of multivessel, global inducible ischemia. Further EKG and clinical correlation recommended. 2. Focal reversibility basal septal and basal lateral lo may be artifactual as findings do not cor roborate on polar maps. [facility], , 09/24/2024 12:52 PM
== END | disposition home or self-care (01) ==
LOC: RADNMMAIN 07:50
PROVIDERS: ATTEND Family Medicine
DX: I20.89 Other forms of angina pectoris (principal); R94.31 Abnormal electrocardiogram [ECG] [EKG]; I51.7 Cardiomegaly
CPT/HCPCS: 93017; 78452; A9500; J2785